=== PATIENT | male | born 1950 | race African-American/Black ===

== ENCOUNTER 2018-09-12 12:06 | Outpatient (CLI) | payer MEDICARE ==
[~2018-09-12 12:06] MED LIST: Iopamidol 370 76% 100 ML VIAL ONE
--- NOTE | 2018-09-12 16:17 | CT ---
CTA OF ABDOMEN AND PELVIS WITH 3D VOLUME RENDERING WITH CONTRAST CTA WITH CONTRAST LOWER EXTREMITY RUNOFF WITH 3D [address] R[address] CT LUMBAR SPINE WITH CONTRAST AND REFORMATTED IMAGING 09/12/18 CLINICAL HISTORY: Low back pain with history of peripheral vascular disease. FINDINGS: Imaged lung bases are grossly clear. Scattered vascular plaque, calcified and noncalcified involves t he abdominal aorta which is ectatic, although nonaneurysmal. A faint region of intraluminal linear de nsity of the infrarenal abdominal aorta suggests a very subtle dissection flap. There is plaque at th e origin of the celiac axis, without high grade stenosis. Otherwise the great vessel origins emanatin g from the abdominal aorta are grossly patent. There is ectasia of the bilateral common iliac arteries which reveal moderate multifocal plaque forma tion. There is moderate stenosis of the left external iliac artery due to calcified and noncalcified plaque. The right external iliac artery is grossly patent. There is mild to moderate disease of each common femoral artery. Mild multifocal disease of each superficial femoral artery is present. Mild jeni cristofer irregularity of each popliteal artery is present. Three vessel runoff to the level of the high ankle is present bilaterally. Mild bilateral vascular calcification present at the tibioperoneal trun k bilaterally. CT imaging of the lumbar spine performed with reformatted imaging which reveals multilevel mild degen erative change without compression fracture or subluxation. Incidental note of a hypodensity of the r ight kidney indicating a cyst. There is a prominent degree of retained fecal material throughout the colon compatible with constipation. Marked distention of the urinary bladder. There is enlargement an d heterogeneity of the prostate gland. IMPRESSION: 1. Scattered atherosclerotic vascular disease. 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 2. No acute osseous abnormality in the lumbar spine. 3. Marked enlargement of prostate gland with urinary bladder wall prominence and distention whic h may be related to sequela from outlet obstruction. Correlate clinically. Underlying prostate malign gogo is not excluded and should be evaluated with physical exam and laboratory markers. POS: [facility]
--- NOTE | 2018-09-12 17:03 | CT ---
CT LUMBAR SPINE NONCONTRAST: HISTORY: Low back pain. FINDINGS: There are five lumbar type vertebrae. Vertebral body heights are maintained. Disk space narrowing a t the L2-L3 and L3-L4 levels. Minimal degenerative spondylolisthesis at the L4-L5 level. Left sylvester inal stenosis is most severe at the L2-L3 level. Right foraminal stenosis is most severe at the L2-L 3 and L3-L4 levels. Osteophytosis throughout the lower facets. No acute fracture or dislocation. IMPRESSION: Degenerative changes, including foraminal stenoses at the L2-L3 and L3-L4 levels. No evidence of com pression fracture. No acute osseous abnormalities are demonstrated. POS: [facility]
== END 2018-09-12 12:07 | disposition home or self-care (01) ==
LOC: NAV CT 12:06
PROVIDERS: ATTEND Internal Medicine
DX: M54.5 Low back pain (principal); I70.209 Unspecified atherosclerosis of native arteries of extremities, unspecified extremity; N40.0 Benign prostatic hyperplasia without lower urinary tract symptoms; N32.89 Other specified disorders of bladder; M47.896 Other spondylosis, lumbar region; M99.83 Other biomechanical lesions of lumbar region
CPT/HCPCS: 36415; 72131; 75635; 82565